=== PATIENT | male | born 1995 | race Caucasian/White ===

== ENCOUNTER 2020-01-08 20:21 | Emergency (ER) | payer OTHER ==
[~2020-01-08] VITALS: Ht 190.5 cm; Wt 66.4 kg
[2020-01-08] MEDS ORDERED: cephalexin 250mg capsule PO ONE (21:55)
[2020-01-08] MEDS ORDERED: NAPR-56 PO (21:58)
[2020-01-08] MEDS ORDERED: CEPH250T PO (21:58)
[2020-01-08 22:12] VITALS: BP 127/80
== END 2020-01-08 22:16 | disposition home or self-care (01) ==
LOC: ER 20:22
DX: M25.521 Pain in right elbow (principal); L03.113 Cellulitis of right upper limb; G56.21 Lesion of ulnar nerve, right upper limb; F17.200 Nicotine dependence, unspecified, uncomplicated; Z98.890 Other specified postprocedural states; Z88.8 Allergy status to other drugs, medicaments and biological substances; Z79.2 Long term (current) use of antibiotics; Z79.899 Other long term (current) drug therapy
CPT/HCPCS: 73080; 99283

== ENCOUNTER 2024-02-24 10:38 | Emergency (ER) | payer MEDICAID, OTHER ==
[~2024-02-24] VITALS: Ht 193 cm; Wt 69.2 kg
[2024-02-24 10:39] VITALS: BP 145/88; PULSE 103; TEMP 98.6; O2SAT 99
[2024-02-24 10:53] VITALS: RESP 16
[2024-02-24] MEDS ORDERED: IBUP-1986 PO (12:17)
[2024-02-24] MEDS ORDERED: GABA-530 PO (12:17)
== END 2024-02-24 12:42 | disposition home or self-care (01) ==
LOC: ER 10:39
DX: M54.50 Low back pain, unspecified (principal); G89.29 Other chronic pain; M54.2 Cervicalgia; Z87.81 Personal history of (healed) traumatic fracture; Z79.899 Other long term (current) drug therapy; Z88.6 Allergy status to analgesic agent
CPT/HCPCS: 72040; 72100; 99284

== ENCOUNTER 2024-04-09 15:15 | Emergency (ER) | payer MEDICAID ==
[~2024-04-09] VITALS: Ht 193 cm; Wt 63.6 kg
[~2024-04-09 15:15] MED LIST: GABA-530 PO; IBUP-1986 PO
[2024-04-09 15:47] VITALS: TEMP 98.9
[2024-04-09 16:21] LABS: BASOPHILS % (AUTO) 0.3 % (0-1); EOSINOPHILS % (AUTO) 0.2 % (0-6); HEMATOCRIT 39.6 % (42.0-52.0); HEMOGLOBIN 13.1 g/dl (14.0-17.9); LYMPHOCYTES # (AUTO) 0.9 X10'3 (1.1-4.8); LYMPHOCYTES % (AUTO) 9.5 % (21-51); MEAN CORPUSCULAR HEMOGLOBIN 31.8 PG (27.0-31.0); MEAN CORPUSCULAR HGB CONC 33.2 g/dL (33.0-36.5); MEAN CORPUSCULAR VOLUME 95.8 FL (78-98); MEAN PLATELET VOLUME 7.5 FL (7.4-10.4); MONOCYTES # (AUTO) 0.7 X10'3 (0-0.9); MONOCYTES % (AUTO) 6.8 % (2-12); NEUTROPHILS # (AUTO) 8.1 X10'3 (1.8-7.7); NEUTROPHILS % (AUTO) 83.2 % (42-75); PLATELET COUNT 220 X10'3 (140-440); RED BLOOD COUNT 4.13 X10'6 (4.70-6.10); RED CELL DISTRIBUTION WIDTH 13.9 % (11.5-14.5); WHITE BLOOD COUNT 9.8 X10'3 (4.5-11.0)
[2024-04-09] MEDS: QUEtiapine 25mg tablet PO STA (16:25)
[2024-04-09 16:47] LABS: ALBUMIN 4.2 G/DL (3.4-5.0); ANION GAP 10 (8-16); BLOOD UREA NITROGEN 10 MG/DL (7-18); CALCIUM 9.2 MG/DL (8.5-10.1); CHLORIDE 103 MMOL/L (99-107); CREATININE 0.91 MG/DL (0.60-1.10); ETHANOL < 10 MG/DL (<10); GLUCOSE 85 MG/DL (70-104); POTASSIUM 3.4 MMOL/L (3.5-5.1); SALICYLATE 3.3 MG/DL (4.0-20.0); SODIUM 140 MMOL/L (135-145); THYROID STIMULATING HORMONE 0.98 ulU/ml (0.34-4.50); TOTAL CARBON DIOXIDE 26.6 MMOL/L (24-32); eCRCL 107 ML/MIN; eGFR > 90 ML/MIN
[2024-04-09 16:53] LABS: ACETAMINOPHEN < 2.0 UG/ML (10-30)
[2024-04-09] MEDS: nicotine 21mg patch - 24 hr TD ONE (17:01)
[2024-04-09] MEDS: LORazepam 1 MG tablet PO ONE (17:34)
[2024-04-09 17:55] LABS: BILIRUBIN,URINE NEGATIVE (Neg); CLARITY,URINE CLEAR (Clear); COLOR,URINE YELLOW (Yellow); GLUCOSE, URINE NEGATIVE (Neg); KETONES,URINE 15 mg/dl (Neg); LEUKOCYTE ESTERASE ,URINE TRACE (Neg); NITRITES, URINE NEGATIVE (Neg); OCCULT BLOOD,URINE NEGATIVE (Neg); PH,URINE 5.5 (4.8-8.0); PROTEIN,URINE NEGATIVE (Neg); UROBILINOGEN,URINE 0.2 E.U/dL (0.2-1.0)
[2024-04-09 17:59] LABS: UA COLLECTION TYPE VOIDED
[2024-04-09 18:04] LABS: URINE AMPHETAMINE SCREEN NEGATIVE (Neg); URINE BARBITUATE SCREEN NEGATIVE (Neg); URINE BENZODIAZEPINES SCREEN POSITIVE (Neg); URINE CANNABINOID SCREEN POSITIVE (Neg); URINE COCAINE SCREEN NEGATIVE (Neg); URINE METHADONE SCREEN NEGATIVE (Neg); URINE OPIATE SCREEN NEGATIVE (Neg); URINE PHENCYCLIDINE SCREEN NEGATIVE (Neg)
[2024-04-09] MEDS: haloperidol lactate 5mg/ml inj ONE (18:05)
[2024-04-09] MEDS: diphenhydrAMINE 50 mg/ml inj IM ONE (18:05)
[2024-04-09 18:06] LABS: SQUAMOUS EPITHELIAL CELL,UR NONE SEEN /LPF (FEW)
[2024-04-09] MEDS: haloperidol lactate 5mg/ml inj IM ONE (18:06)
[2024-04-09 18:09] LABS: BACTERIA,URINE NONE SEEN /HPF (Neg); MUCUS STRANDS FEW /LPF (Neg); RBC,URINE NONE SEEN /HPF (0-2)
[2024-04-09] MEDS ORDERED: LISD40CA4 PO (20:23)
[2024-04-09] MEDS ORDERED: SERT-434 PO (20:23)
[2024-04-09] MEDS ORDERED: LAMO100T PO (20:23)
[2024-04-09] MEDS ORDERED: GABA-530 PO (23:14)
[2024-04-09] MEDS ORDERED: IBUP-1986 PO (23:16)
[2024-04-10] MEDS: gabapentin 100mg capsule PO SCH
[2024-04-10 00:44] VITALS: BP 101/57; PULSE 52; RESP 18; O2SAT 100
[2024-04-10] MEDS: QUEtiapine 25mg tablet PO ONE (05:07)
[2024-04-10] MEDS: haloperidol lactate 5mg/ml inj IM ONE ×2 (05:26→07:55)
[2024-04-10] MEDS: lamoTRIgine 100mg tablet PO SCH (07:55)
[2024-04-10] MEDS: diphenhydrAMINE 50 mg/ml inj IM ONE (07:55)
[2024-04-10] MEDS: lisdexamfetamine dimesylate 10mg capsule PO SCH (07:56)
[2024-04-10] MEDS: sertraline 50mg tablet PO SCH (07:56)
[2024-04-10] MEDS ORDERED: lisdexamfetamine dimesylate 40mg capsule PO SCH (08:00)
[2024-04-10] MEDS: LORazepam 1 MG tablet PO ONE ×3 (08:04→08:07)
== END 2024-04-10 14:37 | disposition still patient (30) ==
LOC: ER 15:15
DX: R45.851 Suicidal ideations (principal); F20.9 Schizophrenia, unspecified; Z88.8 Allergy status to other drugs, medicaments and biological substances; Z79.899 Other long term (current) drug therapy; Z79.1 Long term (current) use of non-steroidal anti-inflammatories (NSAID); Z20.822 Contact with and (suspected) exposure to COVID-19
CPT/HCPCS: 36415; 80048; 80305; 80320; 80329; 81001; 84443; 85025; 87811; 96372; 99285; J1200; J1630

== ENCOUNTER 2024-04-16 21:54 | Emergency (ER) | payer MEDICAID ==
[~2024-04-16] VITALS: Ht 193 cm; Wt 62.7 kg
[~2024-04-16 21:54] MED LIST changes: +LAMO100T PO; +LISD40CA4 PO; +SERT-434 PO
[2024-04-16 22:05] VITALS: BP 140/86; PULSE 88; RESP 16; TEMP 98.1; O2SAT 97
[2024-04-16] MEDS: OLANZapine **IM** 10 mg inj. IM ONE (22:52)
== END 2024-04-16 22:57 | disposition home or self-care (01) ==
LOC: ER 21:55
DX: F31.9 Bipolar disorder, unspecified (principal); Z88.6 Allergy status to analgesic agent; Z91.030 Bee allergy status
CPT/HCPCS: 96372; 99283; J3490